=== PATIENT | female | born 1945 | race Caucasian/White ===

== ENCOUNTER 2023-09-02 12:16 | Emergency (ER) | payer OTHER, SELFPAY ==
[2023-09-02 12:37] VITALS: BP 200/96
[2023-09-02 12:58] LABS: % Basophils 0.3 % (0-2); % Eosinophils 1.5 % (0-6); % Immature Granulocytes 0.3 % (0-0.5); % Lymphocytes 15.1 % (20.5-51.1); % Monocytes 6.7 % (1.7-9.3); % Neutrophils 76.1 % (42.2-75.2); Absolute Eosinophils 0.1 10^3/uL (0-0.7); Absolute Lymphocytes 1.4 10^3/uL (1.2-3.4); Absolute Monocytes 0.6 10^3/uL (0.1-0.6); Absolute Neutrophils 6.8 10^3/uL (1.4-6.5); Hematocrit 41.8 % (37.0-47.0); Hemoglobin 13.1 g/dL (12.0-16.0); Mean Corp Hgb Conc. 31.3 g/dL (33.0-37.0); Mean Corpuscular Hgb 26.7 pg (27.0-31.0); Mean Corpuscular Volume 85.1 fL (81.0-99.0); Mean Platelet Volume 10.7 fL (7.4-10.4); Nucleated Red Blood Cells % 0 %; Platelet Count 212 10^3/uL (130-400); Red Blood Cell Count 4.91 10^6/uL (4.20-5.40); Red Cell Dist. Width 13.3 % (11.5-14.5)
[2023-09-02 13:14] LABS: ALT (SGPT) 17 U/L (0-35); AST (SGOT) 21 U/L (14-36); Albumin 4.2 g/dl (3.5-5.0); Alkaline Phosphatase 115 U/L (38-126); Blood Urea Nitrogen 27 mg/dl (7-17); Calcium 9.3 mg/dl (8.4-10.2); Carbon Dioxide 28 mmol/L (22-30); Chloride 106 mmol/L (98-107); Glucose 116 mg/dl (70-99); Lipase 431 U/L (23-300); Potassium 3.6 mmol/L (3.5-5.1); Sodium 140 mmol/L (135-145); Total Bilirubin 0.8 mg/dl (0.2-1.3); Total Protein 7.1 g/dl (6.3-8.2); eGFR > 60.00
[2023-09-02 15:34] VITALS: BP 162/72
--- NOTE | 2023-09-02 15:56 | ED.GENMED ---
History of Present Illness
General
Chief Complaint: Abdominal Symptoms
Source: patient
Exam Limitations: none
Time Seen by Provider: 09/02/23 14:59
Nursing documentation reviewed up to this point in time: agreed with
Travel History
Have you had any contact with someone who has COVID-19?: No
Do you have any symptoms of coronavirus? Fever > 100 degrees, chills, cough, shortness of breath, sore throat, loss of taste or smell, muscle aches, or headache?: No
History of Present Illness
History of Present Illness:
77-year-old female with past medical history of previous stomach ulcers GERD esophagus presenting to the emergency department today with concerns of upper abdominal over the past few weeks worsening over the past few days has had some decreased
appetite secondary to this. Denies vomiting denies changes in bowel movements has been taking Protonix without relief. Unable to get appointment for multiple months with her GI doctor.
Past History
Past History
ED Past Medical History: GERD, HTN and Other
ED Past Surgical History: Cholecystectomy and Gynecological (Hysterectomy)
Social History
Tobacco: Former smoker
Alcohol: None
Drug: None
Personal:
Living: with family
Review of Systems
Review of Systems
Allergies reviewed?: Yes
All Other Systems: ROS reviewed and negative except as documented in HPI and ROS
Phy Exam
Physical Exam
Physical Exam:
GENERAL: Alert , in no apparent distress
EYE: pupils equal and reactive
NECK: Supple, no significant adenopathy.
ENT: o/p clr, mmm.
CARDIAC: Regular rate and rhythm .
LUNGS: Clear breath sounds bilaterally, no acute respiratory distress, no wheezes/rales/rhonchi
ABDOMEN: Mild diffuse abdominal pain
NEUROLOGICAL: Alert and oriented, no focal neuro deficits
SKIN: Warm and dry, skin intact.
MUSCULOSKELETAL: No edema, well perfused.
PSYCH: Normal and appropriate interaction.
Course
Orders/Labs/Results
Orders:
Orders
09/02/23 12:40
Electrocardiogram (*1) Urgent
Reason for Study: Abdominal Pain
EKG- Treatment ONCE
09/02/23 12:49
Complete Blood Count/With Diff Urgent
Comprehensive Metabolic Panel Urgent
Lipase Urgent
09/02/23 15:21
CT Abd/Pel (IV only)-[facility] only Urgent
Comment:
Reason For Exam: diffuse abd pain
09/02/23 15:57
Famotidine [Pepcid] 20 mg IV NOW STA
09/02/23 17:33
Mag Hydrox/Al Hydrox/Simeth [Maalox] 30 ml Phenobarb/Hyoscy/Atropine/Scop [] 10 ml PO NOW
09/02/23 18:18
Mag Hydrox/Al Hydrox/Simeth [Maalox] 30 ml .ROUTE .STK-MED ONE
Phenobarb/Hyoscy/Atropine/Scop [] 10 ml .ROUTE .STK-MED ONE
Abnormal Lab Results
09/02/23
12:49
MCH 26.7 L pg
(27.0-31.0)
MCHC 31.3 L g/dL
(33.0-37.0)
MPV 10.7 H fL
(7.4-10.4)
Absolute Neuts (auto) 6.8 H 10^3/uL
(1.4-6.5)
Neutrophils % 76.1 H %
(42.2-75.2)
Lymphocytes % 15.1 L %
(20.5-51.1)
BUN 27 H mg/dl
(7-17)
Glucose 116 H mg/dl
(70-99)
Lipase 431 H U/L
(23-300)
09/02/23 12:49
09/02/23 12:49
Vital Signs
Initial and Last Documented VS:
Initial Vital Signs
Temp Pulse Resp BP Pulse Ox
98.0 F 79 16 200/96 98
09/02/23 12:37 09/02/23 12:37 09/02/23 12:37 09/02/23 12:37 09/02/23 12:37
Last Documented Vital Signs
Temp Pulse Resp BP Pulse Ox
98.0 F 74 18 175/74 99
09/02/23 12:37 09/02/23 17:17 09/02/23 17:17 09/02/23 17:17 09/02/23 17:17
MDM/Problems Addressed
MDM/Problems Addressed:
77-year-old female presenting to the emergency department today with concerns of upper abdominal discomfort of the past few weeks feels similar to previous ulcers. Has been taking Prilosec without relief. Here very mild discomfort generally
throughout the abdomen but mainly to the epigastric region no specific point tenderness initial blood pressure elevated but improving without specific treatment. Labs unremarkable CT scan without emergent findings patient had improvement of
symptoms after receiving famotidine advised for close GI follow-up return precautions given.
*Critical Care Note
Total Time (30-74mins, 75-104mins- exclusive of procedures): Not Applicable
ED Attending Note
-
Portions of this chart may have been created with voice recognition software.� Occasional wrong word or��sound alike� substitutions may have occurred due to the inherent limitations of voice recognition software.
Discharge Plan
Departure
Patient Disposition: Home (Routine Discharge)
Date of Disposition: 09/02/23
Time of Disposition: 18:29
Patient with high blood pressure during this ER visit?: Yes
Condition: Good
Covid-19: Not Applicable
Discharge Problem:
Abdominal pain
Instructions: Abdominal Pain, BLOOD PRESSURE
Prescriptions:
New
famotidine 40 mg tablet
40 mg PO HS 14 Days Qty: 14 0RF
Referrals:
Maciej Delgado MD [Family Provider] -
Activity Restrictions/Additional Instructions:
You came to the emergency department today with concerns of upper abdominal discomfort. Here you the CT scan without emergent findings and labs without emergent findings as well. Please take famotidine at night and Prilosec in the morning and
follow-up closely with your GI doctor. Return to the emergency department for any worsening, new or concerning symptoms.
Interventions
Interventions:
*Risk Screen - Suicide Last Done: 09/02/23 15:35
*General Assessment Last Done: 09/02/23 15:35
*Neglect/Abuse Screening Last Done: 09/02/23 15:35
*ED COVID-19 Vaccine History Last Done: 09/02/23 12:37
RK-Fzvlej-Rkhhrlwusn Assessment Last Done: 09/02/23 15:35
[2023-09-02] MEDS: PEPCID 20 MG IV (16:13)
[2023-09-02 17:17] VITALS: BP 175/74
[2023-09-02] MEDS: MAALOX 40 PO (18:20)
== END 2023-09-02 18:43 | disposition home or self-care (01) ==
LOC: EMR 12:16
PROVIDERS: Emergency Medicine; EMERGENCY PHYSICIAN Emergency Medicine; FAMILY PHYSICIAN Family Medicine
DX: R10.9 Unspecified abdominal pain (principal); I10 Essential (primary) hypertension; Z87.891 Personal history of nicotine dependence
CPT/HCPCS: 99285; 96374; 74177; 80053; 83690; 85025; 93005; Q9967

== ENCOUNTER 2025-02-14 13:49 | Emergency (ER) | payer OTHER, SELFPAY ==
[2025-02-14 13:52] VITALS: BP 184/80
--- NOTE | 2025-02-14 14:54 | ED.GENMED ---
History of Present Illness
<Shannen Mack LICENSE AND PERMIT SPECIALIST - Last Filed: 02/15/25 08:40>
General
Chief Complaint: Abdominal Symptoms
Source: patient
Exam Limitations: none
Time Seen by Provider: 02/14/25 14:52
Nursing documentation reviewed up to this point in time: agreed with
History of Present Illness
History of Present Illness:
79-year-old female with history of HTN, GERD, stomach ulcers, GI bleed, Cavazos's esophagus, anxiety, cholecystectomy, total hysterectomy presents for constipated, has not had a good bowel movement in 'a couple of weeks.' Also feels a 'lump' left
side of her abdomen and 'even the small amounts that I am going feels like the bowel movements are going around something.' Her appetite has been good and she has been eating and drinking well. She denies nausea or vomiting.
Past History
<Shannen Mack LICENSE AND PERMIT SPECIALIST - Last Filed: 02/15/25 08:40>
Past History
ED Past Medical History: GERD, HTN and Other (Stomach ulcers, Cavazos's esophagus, GI bleed, macular degeneration, glaucoma)
ED Past Surgical History: Cholecystectomy and Gynecological (Hysterectomy)
Social History
Tobacco: Former smoker
Alcohol: None
Drug: None
Personal:
Living: with family
Review of Systems
<Shannen Mack, LICENSE AND PERMIT SPECIALIST - Last Filed: 02/15/25 08:40>
Review of Systems
Allergies reviewed?: Yes
All Other Systems: ROS reviewed and negative except as documented in HPI and ROS
Constitutional: Denies fever
Respiratory: Denies trouble breathing
Cardiac: Denies chest pain
ABD/GI: Reports abdominal pain and constipated; Denies nausea, vomiting, diarrhea, bloody stools, black stools or anorexia
: Denies dysuria, frequency, difficulty voiding or urgency
Musculoskeletal: Reports edema (Chronic mild lymphedema bilateral lower extremities.)
Skin: Reports other (Mild erythema anterior aspect left lower extremity patient states is chronic)
Neurological: Reports no symptoms
Phy Exam
<Shannen Mack LICENSE AND PERMIT SPECIALIST - Last Filed: 02/15/25 08:40>
Physical Exam
Physical Exam:
GENERAL: No acute distress. A&Ox3.
CONSTITUTIONAL: Afebrile.
EYES: clear, conjunctivae normal
ENMT: moist mucus membranes, Pharynx nl
RESPIRATORY: Regular respirations, nonlabored, lungs clear.
CARDIOVASCULAR: Regular rate and rhythm, no murmurs, no rubs.
GI: Soft, obese, tender left upper abdomen, hy with poactive BS
MUSCULOSKELETAL: Moves with ease. Well perfused. Bilateral mild lower extremity lymphedema
SKIN: Warm, dry, pink, local erythema anterior aspect of left lower leg patient states is chronic
PSYCH: Normal mood and affect. Well kept, interactive and appropriate
NEUROLOGIC: Awake, alert and oriented. No focal neurological deficits
Course
<Shannen Mack, LICENSE AND PERMIT SPECIALIST - Last Filed: 02/15/25 08:40>
Orders/Labs/Results
Orders:
Orders
02/14/25 15:53
CT Abd/Pel (IV only)-[facility] only Urgent
Comment:
Reason For Exam: constipated 2 weeks, feels 'lump' left abdomen
02/14/25 16:46
Complete Blood Count/With Diff Urgent
Comprehensive Metabolic Panel Urgent
Lipase Urgent
02/14/25 16:48
0.9% Sodium Chloride 1000 ml [Nss] 1,000 ml IV BOLUS
02/14/25 17:51
Urinalysis Reflex To Culture Urgent
Date Specimen was Collected: 02/14/25
Time Specimen was Collected: 17:50
Urine Microscopic Reflex Cult Urgent
Urine Culture Urgent
NADINE Source: U
Specimen Description:
Date Specimen was Collected: 02/14/25
Time Specimen was Collected: 17:50
Abnormal Lab Results
02/14/25 02/14/25
16:46 17:51
MCH 26.7 L pg
(27.0-31.0)
MCHC 31.6 L g/dL
(33.0-37.0)
MPV 10.7 H fL
(7.4-10.4)
Absolute Neuts (auto) 6.8 H 10^3/uL
(1.4-6.5)
Absolute Monos (auto) 0.9 H 10^3/uL
(0.1-0.6)
Lymphocytes % 17.5 L %
(20.5-51.1)
Monocytes % 9.9 H %
(1.7-9.3)
BUN 30 H mg/dl
(7-17)
Lipase 324 H U/L
(23-300)
Urine Bacteria (Reflex) Moderate A
(Negative)
Urine Albumin (Reflex) 3+ A
(Neg - Trace)
02/14/25 16:46
02/14/25 16:46
Vital Signs
Initial and Last Documented VS:
Initial Vital Signs
Temp Pulse Resp BP Pulse Ox
97.9 F 84 16 184/80 97
02/14/25 13:52 02/14/25 13:52 02/14/25 13:52 02/14/25 13:52 02/14/25 13:52
Last Documented Vital Signs
Temp Pulse Resp BP Pulse Ox
97.9 F 84 16 172/66 97
02/14/25 13:52 02/14/25 13:52 02/14/25 13:52 02/14/25 18:00 02/14/25 18:00
<Srinivas Bustos PA-C - Last Filed: 02/14/25 19:07>
Orders/Labs/Results
Orders:
Orders
02/14/25 15:53
CT Abd/Pel (IV only)-[facility] only Urgent
Comment:
Reason For Exam: constipated 2 weeks, feels 'lump' left abdomen
02/14/25 16:46
Complete Blood Count/With Diff Urgent
Comprehensive Metabolic Panel Urgent
Lipase Urgent
02/14/25 16:48
0.9% Sodium Chloride 1000 ml [Nss] 1,000 ml IV BOLUS
02/14/25 17:51
Urinalysis Reflex To Culture Urgent
Date Specimen was Collected: 02/14/25
Time Specimen was Collected: 17:50
Urine Microscopic Reflex Cult Urgent
Urine Culture Urgent
NADINE Source: U
Specimen Description:
Date Specimen was Collected: 02/14/25
Time Specimen was Collected: 17:50
Abnormal Lab Results
02/14/25 02/14/25
16:46 17:51
MCH 26.7 L pg
(27.0-31.0)
MCHC 31.6 L g/dL
(33.0-37.0)
MPV 10.7 H fL
(7.4-10.4)
Absolute Neuts (auto) 6.8 H 10^3/uL
(1.4-6.5)
Absolute Monos (auto) 0.9 H 10^3/uL
(0.1-0.6)
Lymphocytes % 17.5 L %
(20.5-51.1)
Monocytes % 9.9 H %
(1.7-9.3)
BUN 30 H mg/dl
(7-17)
Lipase 324 H U/L
(23-300)
Urine Bacteria (Reflex) Moderate A
(Negative)
Urine Albumin (Reflex) 3+ A
(Neg - Trace)
02/14/25 16:46
02/14/25 16:46
Vital Signs
Initial and Last Documented VS:
Initial Vital Signs
Temp Pulse Resp BP Pulse Ox
97.9 F 84 16 184/80 97
02/14/25 13:52 02/14/25 13:52 02/14/25 13:52 02/14/25 13:52 02/14/25 13:52
Last Documented Vital Signs
Temp Pulse Resp BP Pulse Ox
97.9 F 84 16 172/66 97
02/14/25 13:52 02/14/25 13:52 02/14/25 13:52 02/14/25 18:00 02/14/25 18:00
<Shannen Mack LICENSE AND PERMIT SPECIALIST - Last Filed: 02/15/25 08:40>
MDM/Problems Addressed
MDM/Problems Addressed:
79-year-old female with history of HTN, GERD, stomach ulcers, GI bleed, Cavazos's esophagus, anxiety, cholecystectomy, total hysterectomy presents for constipated, has not had a good bowel movement in 'a couple of weeks.' Also feels a 'lump' left
side of her abdomen and 'even the small amounts that I am going feels like the bowel movements are going around something.' Her appetite has been good and she has been eating and drinking well. She denies nausea or vomiting.
5:30 PM:
CBC with no clinically significant abnormality
CMP with no clinically significant abnormality; BUN 30, IV fluids infusing
Lipase minimally elevated at 324
Patient awaiting for abdominal CAT scan with IV contrast
U/A:
Case discussed with MELISSA Cook who will assume care from this point.
CT scan result pending
<Shannen Mack NP - Last Filed: 02/15/25 08:40>
*Pulse Oximetry
SaO2: 97
Oxygen Mode of Delivery: Room air
<ELIA PandeyC - Last Filed: 02/14/25 19:07>
*Radiology
Radiology exam reviewed: radiology read reviewed
*Pulse Oximetry
Patient hypoxic: no
*Critical Care Note
Total Time (30-74mins, 75-104mins- exclusive of procedures): Not Applicable
<Srinivas Bustos PA-C - Last Filed: 02/14/25 19:07>
Patient Management
Escalation/DeEscalation of care consider admission/obs:
6 PM: patient received in signout pending CT results.
CT scan without any acute findings. Mild constipation noted. Patient states that she has a scheduled colonoscopy for March 11 as part of her follow-up. Patient did describe to me a sensation as if she has something within her rectal area. I
did perform a digital rectal exam chaperoned by ED RN Alicia, soft light brown stool, heme-negative, no fecal impaction. At this time I do think it is reasonable for patient to be discharged home. Follow-up with primary care provider and GI as
she has scheduled. Aware of return precautions to the ER.
ED Attending Note
<Shannen Mack NP - Last Filed: 02/15/25 08:40>
-
Portions of this chart may have been created with voice recognition software.� Occasional wrong word or��sound alike� substitutions may have occurred due to the inherent limitations of voice recognition software.
Discharge Plan
Departure
Patient Disposition: Home (Routine Discharge)
Date of Disposition: 02/14/25
Time of Disposition: 18:38
Patient with high blood pressure during this ER visit?: Yes
Discharge Problem:
Abdominal pain, Constipation
Instructions: Constipation, Adult (DC)
Prescriptions:
No Action
famotidine 40 mg tablet
40 mg PO HS 14 Days Qty: 14 0RF
Referrals:
Maciej Delgado MD [Family Provider, Family Practice]
Interventions
Interventions:
*Risk Screen - Suicide Last Done: 02/14/25 13:55
*General Assessment Last Done: 02/14/25 15:47
*Neglect/Abuse Screening Last Done: 02/14/25 13:55
*ED- Fall Risk Assessment Last Done: 02/14/25 15:47
*ED COVID-19 Vaccine History Last Done: 02/14/25 15:47
*Nursing Disposition Last Done: 02/14/25 18:53
EE-Ckfncn-Zdjdkdlxoz Assessment Last Done: 02/14/25 15:47
Discharge Date and Time
Discharge Date/Time: 02/14/25 19:04
Print Language: MAURITIAN
[2025-02-14 15:46] VITALS: BMI 44.4
[2025-02-14 16:49] VITALS: BP 176/69
[2025-02-14 16:53] LABS: Hematocrit 39.2 % (37.0-47.0); Hemoglobin 12.4 g/dL (12.0-16.0); Mean Corp Hgb Conc. 31.6 g/dL (33.0-37.0); Mean Corpuscular Volume 84.5 fL (81.0-99.0); Nucleated Red Blood Cells % 0 %; Platelet Count 229 10^3/uL (130-400); Red Cell Dist. Width 13.3 % (11.5-14.5)
[2025-02-14] MEDS: NSS 1000 IV (16:59)
[2025-02-14 17:07] LABS: ALT (SGPT) 13 U/L (0-35); AST (SGOT) 21 U/L (14-36); Albumin 4.0 g/dl (3.5-5.0); Alkaline Phosphatase 102 U/L (38-126); Blood Urea Nitrogen 30 mg/dl (7-17); Calcium 9.4 mg/dl (8.4-10.2); Carbon Dioxide 26 mmol/L (22-30); Chloride 105 mmol/L (98-107); Estimated Creatinine Clearance 64 ml/min; Glucose 90 mg/dl (70-99); Potassium 4.2 mmol/L (3.5-5.1); Sodium 136 mmol/L (135-145); Total Protein 6.7 g/dl (6.3-8.2); eGFR > 60.00
[2025-02-14 17:08] LABS: Lipase 324 U/L (23-300)
[2025-02-14 17:46] VITALS: BP 183/110
[2025-02-14 17:58] LABS: Urine Character Clear (Clear)
[2025-02-14 18:00] VITALS: BP 172/66
[2025-02-14 18:08] LABS: Urine Squamous Cell >30 /LPF (Few)
[2025-02-14 18:09] LABS: Urine Red Blood Cell 0-2 /HPF (0-2); Urine White Cell 0-2 /HPF (0-5)
== END 2025-02-14 19:04 | disposition home or self-care (01) ==
LOC: EMR 13:49
PROVIDERS: Emergency Medicine; Registered Nurse; EMERGENCY PHYSICIAN Student in an Organized Health Care Education/Training Program; FAMILY PHYSICIAN Family Medicine
DX: K59.00 Constipation, unspecified (principal); I10 Essential (primary) hypertension; H35.30 Unspecified macular degeneration; H40.9 Unspecified glaucoma; K21.9 Gastro-esophageal reflux disease without esophagitis; K22.70 Barrett's esophagus without dysplasia; F41.9 Anxiety disorder, unspecified; Z87.891 Personal history of nicotine dependence
CPT/HCPCS: 99284; 96360; 74177; 80053; 81003; 81015; 83690; 85025; 87086; Q9967